=== PATIENT | male | born 1935 | race Caucasian/White ===

== ENCOUNTER 2020-07-25 01:40 | Emergency (ER) | payer MEDICARE, BC, SELFPAY ==
--- NOTE | 2020-07-25 01:46 | ED.GENADUL_ITS ---
Discharge Plan Disposition Patient Disposition: HOME Condition: Stable Discharge Details Clinical Impression: Bilateral leg cramps Primary Care Provider: Angeline,Local ED Provider: Danny Castro Home Meds and New Rx's Prescriptions: Continued lisinopril 20 mg Tablet 20 mg PO DAILY RF: 0 allopurinol 100 mg Tablet 200 mg PO DAILY RF: 0 pravastatin 20 mg Tablet 20 mg PO DAILY RF: 0 metoprolol succinate 25 mg Tablet Extended Release 24 Hr 12.5 mg PO DAILY RF: 0 Discharge Instructions Additional Instructions: your blood work and exam here today were normal You likely are suffering from a peripheral neuropathy and need to follow up with your primary care provider withi 1-2 weeks especially if symptoms continue for further outpatient studies if you feel more ill, have weakness on one side of the body, severe worsening pain return to the emergency departmenti Medical Decision Making 84 yo male with hx of gout, htn, hld, who has been in [place] for a month per him from [place] comes in with 3 weeks of numbness sensation on bottom of both his feet and intermittent cramping of his thighs. He denies fevers, chills, back pain, unexplained weight loss, chest pain, sob. He denies any weakness. He arr danette with stable gait, caox4 with no deficits in his legs on sensation testing on exam with full rom no swelling of the legs and no tenderness and denies pain now. His symptoms could be from peripheral neuropathy, no unilateral symptoms to suggest cva and nih is 0 on exam. He has no back pain so doubt cauda equina and no fevers or other infectious symptoms to suggest sea or osteo and do not feel e mergent imaging indicated. I suspect this could be restless legs vs muscle spasms and could have peripheral neuropathy but has no deficits on exam here. Will evaluate for possible hypokalemia and hyperkalemia given the cramps and reassess. Normal reflexes and symptoms over 3 weeks with no preceding uri symptoms so doubt guillaine barre pt resting in bed without complaints no pain and no deficitis still on neuro exam. BMP without significant findings. I feel based on his reassuring exam he can be d/c'd and f/u with his pcp and he understands return precautions that were discussed. I suspect he is having intermittent muscle spasms given the pain has resolved so quickly Differential Diagnosis Differential Diagnosis: restless legs, hypokalemia, muscle spasm, neuropathy HPI General Mode of arrival: ambulatory . Date/Time Provider Initiated Documentation: 07/25/20 01:42 . Limitations to Documentation: no limitations . Information obtained by: patient . History of Present Illness 84 year old M presents to the emergency department with the chief complaint of legs cramping, described as moderate, and it has been intermittent. No relieving factors improve symptom(s), No exacerbating factors reported . Patient did receive the following treatments prior to arrival, none Related Data Home Medications Medication Instructions Recorded Confirmed allopurinol 200 mg PO DAILY 07/25/20 07/25/20 lisinopril 20 mg PO DAILY 07/25/20 07/25/20 metoprolol succinate 12.5 mg PO DAILY 07/25/20 07/25/20 pravastatin 20 mg PO DAILY 07/25/20 07/25/20 Allergies Allergy/AdvReac Type Severity Reaction Status Date / Time oxycodone Allergy Swelling/Ed Unverified 07/25/20 01:52 petra Review of Systems All systems reviewed & are unremarkable except as noted in HPI and below Constitutional Constitutional: Denies chills, Denies fever(s) and Denies weakness Cardiovascular Cardiovascular: Denies chest pain and Denies dyspnea Respiratory Respiratory: Denies cough and Denies dyspnea Gastrointestinal Gastrointestinal: Denies abdominal pain, Denies nausea and Denies vomiting Musculoskeletal Musculoskeletal: Denies joint swelling Neurologic Neurologic: Denies weakness [facility] Social History Smoking/Tobacco Use Status: Former Tobacco Use Smoking risk assessment performed?: Yes Alcohol Intake: current Alcohol Intake frequency: a few times a week Substance use type: does not use Do you feel safe at home: Yes Do you feel safe in your relationship?: Yes Exam Const General: no acute distress Orientation: alert [facility] Head: normal to inspection Ears: external ears normal General nose exam: external nose normal Mouth: moist mucous membranes Eyes General: appearance normal, both eyes and all related structures Neck Neck: normal visual inspection Resp Effort & Inspection: normal respiratory effort and able to speak in complete sentences Cardio Rate: regular rate Skin General skin exam: no rashes or lesions noted Neuro General: patient alert and patient oriented x3 Extrem General: normal to inspection, full ROM and capillary refill normal Psych Mental Status: mental status grossly normal
[2020-07-25 01:48] VITALS: BP 160/90; PULSE 87; RESP 16; TEMP 36.7; O2SAT 98
[2020-07-25 02:21] LABS: Anion Gap 11.1 mmol/L (3-11); BUN 16 mg/dL (7-18); CO2 22.9 mmol/L (21.0-32.0); CREATININE 1.18 mg/dL (0.70-1.30); Calcium 8.8 mg/dL (8.5-10.1); Chloride 100 mmol/L (98-107); Estimated GFR 58.95 (mL/min/1.73m2); Glucose 115 mg/dL (74-106); Sodium 134 mmol/L (136-145)
== END 2020-07-25 02:30 | disposition home or self-care (01) ==
PROVIDERS: Emergency Provider Emergency Medicine; PCP Internal Medicine
DX: R25.2 Cramp and spasm (principal); R20.0 Anesthesia of skin; I10 Essential (primary) hypertension
CPT/HCPCS: 36415; 80048; 99283